=== PATIENT | female | born 1990 | race African-American/Black ===

== ENCOUNTER 2016-09-05 10:06 | Emergency (ER) | payer BC ==
[~2016-09-05] VITALS: Ht 175.3 cm; Wt 74.8 kg
[2016-09-05 10:14] VITALS: BP 122/81
[2016-09-05] MEDS ORDERED: IBUPROFEN 600 MG TABLET PO ONE ×2 (10:30→10:48)
[2016-09-05] MEDS ORDERED: HYDROCODONE/APAP 5/325MG 1 EACH TABLET ONE (11:05)
[2016-09-05] MEDS ORDERED: HYDROCODONE/APAP 5/325MG 1 EACH TABLET PO ONE (11:30)
== END 2016-09-05 11:42 | disposition home or self-care (01) ==
LOC: ER 10:08
DX: S86.012A Strain of left Achilles tendon, initial encounter (principal); X58.XXXA Exposure to other specified factors, initial encounter; Y92.89 Other specified places as the place of occurrence of the external cause; Y93.89 Activity, other specified; Y99.8 Other external cause status
CPT/HCPCS: 29515; 73564; 73610; 99284; A4606; Z7610